=== PATIENT | female | born 1995 | race Two or more races ===

== ENCOUNTER → 2017-02-10 | Outpatient (CLI) | payer OTHER ==
--- NOTE | 2017-02-11 07:43 | REP ---
REASON: Pain after trauma. PRIORS: None. There is a nondisplaced fracture involving the base of the fifth metacarpal and a possible hairline fracture seen involving the base of the fourth metacarpal, but seen only on one view. IMPRESSION: Fracture and potential fracture as described above. Signed by Chino Hazel DO 02/11/2017 10:58 A
== END ==
LOC: M ADAMS 16:26
PROVIDERS: ATTEND Physician Assistant
DX: S60.221A Contusion of right hand, initial encounter (principal); S62.346A Nondisplaced fracture of base of fifth metacarpal bone, right hand, initial encounter for closed fracture; X58.XXXA Exposure to other specified factors, initial encounter; Y92.9 Unspecified place or not applicable